=== PATIENT | male | born 1965 | race Caucasian/White ===

== ENCOUNTER → 2018-09-01 | Outpatient (CLI) | payer OTHER ==
--- NOTE | 2018-09-01 20:03 | CONS ---
CONSULTATION DATE OF SERVICE: 09/01/2018 53-year-old gentleman has been evaluated in the sleep center for possible obstructive sleep apnea hypopneas syndrome. HISTORY OF PRESENT ILLNESS/SLEEP WAKE EVALUATION: SLEEP SCHEDULE: Patient usual sleep schedule on weekdays from around 9 to 10 pm until 5:00 a.m. and on weekends from around 11:00 p.m. until 10:00 am. FALLING ASLEEP: She does have problem with falling asleep, although no TV in bedroom. DURING SLEEP: Usually sleeps on the back position with snoring and previously has been told by his mother that he has episodes of stopped breathing during the sleep. He wakes up from sleep sometimes 2 times with dry mouth and heartburn and 1 with nocturia. No history of hypnagogic hallucinations, sleep paralysis or cataplexy. DURING THE DAY/SLEEP WAKE EVALUATION: During the day, he may feel sleepy. [place] Sleepiness Scale increased to 10. PAST MEDICAL HISTORY: Positive for diabetes, hyperlipidemia, back problem, acid reflux. Hernia. PAST SURGICAL HISTORY: Appendectomy, tonsillectomy. MEDICATIONS: Neurontin, Flexeril, metformin, atorvastatin, aspirin, famotidine, meloxicam, NovoLog, glucosamine, fish oil, iron supplement. SOCIAL HISTORY: Positive for smoking many years ago. Quit 35 years ago. Alcohol consumption occasional. FAMILY HISTORY: Hypertension, snoring, headaches, cancer, acid reflux, diabetes. REVIEW OF SYSTEMS: Awakenings from sleep, some tiredness and sleepiness during the day. PHYSICAL EXAM: gentleman without distress, BP 149/85, HR 91, RR 18, height 5 feet 2 inches, weight 360.8, body mass index 65.8, temperature 98.2, oxygen saturation on room air 93%. Oropharynx: Extremely low position of soft palate. Wide neck, 18-1/2 inches in circumference. ABDOMEN: Obese. Neck Supple, no JVD. Thyroid is not palpable. LUNGS Clear to percussion and to auscultation. Good air exchange. No wheezing or rhonchi. HEART S1, S2 regular. No murmurs, gallops, or rubs. ABDOMEN Soft and nontender. Bowel sounds are present. No organomegaly appreciated. EXTREMITIES No clubbing or cyanosis. ECONOMIC DEVELOPMENT COORDINATOR Awake, alert, and oriented X3. Cranial nerves 2 to 7 intact. There is no fasciculation or atrophy. noted. No focal deficits observed. IMPRESSION: 1. Awakenings from sleep, low position of soft palate, sleepiness, wide neck, snoring, witnessed episodes of stopped breathing, obstructive sleep apnea-hypopnea syndrome. 2. Obesity, BMI 65.8. 3. Diabetes mellitus. 4. Hyperlipidemia. 5. Back problems. 6. Acid reflux. 7. Status post appendectomy. 8. Status post tonsillectomy. 9. Small abdominal hernia. PLAN: 1. Polysomnography for evaluation of patient's breathing during sleep. 2. CPAP/BiPAP titration if sleep study confirms obstructive sleep apnea-hypopnea syndrome. 3. Preferable position during sleep on the side. 4. No driving if patient feels any sleepiness. 5. I will see patient for follow up visit to explain results of testing and following plan. Thank you very much for referring this patient for consultation. Sincerely, Girish Vaughn MD, PhD, FAASM Diplomat of [employer] Substation Designer of [facility] [place] [facility] / HOLLYN: [id number] /
== END | disposition home or self-care (01) ==
LOC: SLEEP 15:15
PROVIDERS: ATTEND Internal Medicine
DX: G47.33 Obstructive sleep apnea (adult) (pediatric) (principal); M27.8 Other specified diseases of jaws; R35.1 Nocturia; R12 Heartburn; E66.9 Obesity, unspecified; E11.9 Type 2 diabetes mellitus without complications; E78.5 Hyperlipidemia, unspecified; K21.9 Gastro-esophageal reflux disease without esophagitis; K46.9 Unspecified abdominal hernia without obstruction or gangrene; M53.9 Dorsopathy, unspecified; Z79.84 Long term (current) use of oral hypoglycemic drugs; Z79.899 Other long term (current) drug therapy; Z68.44 Body mass index [BMI] 60.0-69.9, adult; Z90.89 Acquired absence of other organs; Z79.82 Long term (current) use of aspirin; Z79.4 Long term (current) use of insulin; Z87.891 Personal history of nicotine dependence; Z79.1 Long term (current) use of non-steroidal anti-inflammatories (NSAID)
CPT/HCPCS: 99211

== ENCOUNTER → 2019-01-04 | Outpatient (CLI) | payer OTHER ==
--- NOTE | 2019-01-04 19:01 | PN ---
PROGRESS NOTE DATE OF SERVICE: 01/04/2019 This patient is a 53-year-old gentleman who has been followed in Sleep Center for treatment of obstructive sleep apnea-hypopnea syndrome. Recently the patient had a polysomnogram and CPAP titration and I discussed results of his sleep studies with the patient in detail. Sleep study showed extremely severe sleep apnea with extremely severe oxygen desaturation. The patient started to use his machine, but he had some symptoms of upper respiratory infection and he was not able to use the machine for the whole time. I checked his CPAP unit. CPAP pressure is 16 cm of water. According to the machine, usage was 4/30 nights with average usage of 5.3 hours. Leak is 23 L/minute, which is borderline. Apnea-hypopnea index is only 1.2, which is absolutely perfect and normal. [place] Sleepiness Scale today is 2. MEDICATIONS: 1. Neurontin. 2. Flexeril. 3. Metformin. 4. Atorvastatin. 5. Famotidine. 6. Meloxicam. 7. NovoLog. 8. Glucosamine. 9. . PHYSICAL EXAMINATION: GENERAL: A pleasant patient in no distress. VITAL SIGNS: BP 158/88, HR 95, RR 19, weight 353.4, temperature 98.0. HEENT: PERRLA, EOMI. Evaluation of oropharynx showed tongue protrudes midline. Low position of soft palate. NECK: Supple. No JVD. Thyroid is not palpable. LUNGS: Clear to percussion and to auscultation. Good air exchange. No wheezing or rhonchi. HEART: S1, S2 regular. No murmurs, gallops or rubs. ABDOMEN: Obese. EXTREMITIES: No clubbing or cyanosis. LAND DEVELOPMENT PROJECT MANAGER: Awake, alert, and oriented X3. Cranial nerves 2 to 7 intact. There is no fasciculation or atrophy. noted. No focal deficits observed. IMPRESSION: 1. Extremely severe obstructive sleep apnea-hypopnea syndrome with extremely severe oxygen desaturation, under full control with CPAP at the pressure of 16 cm of water. Patient is benefitting from CPAP treatment. 2. Obesity with body mass index of 66.2. 3. Diabetes mellitus. 4. Hyperlipidemia. 5. Acid reflux. 6. Status post appendectomy. 7. Status post tonsillectomy. 8. History of small abdominal hernia. PLAN: 1. Patient will continue to use CPAP equipment every night for the whole night. 2. Losing weight. 3. Sleep hygiene with regular time in bed for at least 8 hours. 4. No driving if feeling any sleepiness. Thank you very much for allowing me to participate in the management of your patient. Sincerely, Girish Vuaghn MD, PhD, FAASM Diplomat of [employer] Dough Catcher of [facility] [place] [facility] / HOLLYN: [id number] /
== END | disposition home or self-care (01) ==
LOC: SLEEP 16:02
PROVIDERS: ATTEND Internal Medicine
DX: G47.33 Obstructive sleep apnea (adult) (pediatric) (principal); E66.9 Obesity, unspecified; E11.9 Type 2 diabetes mellitus without complications; E78.5 Hyperlipidemia, unspecified; K21.9 Gastro-esophageal reflux disease without esophagitis; Z68.44 Body mass index [BMI] 60.0-69.9, adult; Z90.89 Acquired absence of other organs; Z90.49 Acquired absence of other specified parts of digestive tract; Z87.19 Personal history of other diseases of the digestive system; Z99.89 Dependence on other enabling machines and devices; Z79.899 Other long term (current) drug therapy; Z79.1 Long term (current) use of non-steroidal anti-inflammatories (NSAID); Z79.4 Long term (current) use of insulin

== ENCOUNTER → 2019-12-19 | Outpatient (CLI) | payer OTHER ==
--- NOTE | 2019-12-20 10:35 | MR ---
EXAMINATION TYPE: MR lumbar spine wo con DATE OF EXAM: 12/19/2019 COMPARISON: Plain film from outside institution 12/11/2019, frontal view not submitted HISTORY: Low Back Pain TECHNIQUE: Multiplanar, multisequence images of the lumbar spine were acquired. L1-L2: Posterior broad-based disc bulge causes mild anterior mass effect on the thecal sac with mild central stenosis. No significant foraminal encroachment. Loss of disc height and signal compatible di sc desiccation and degenerative disc disease. L2-L3: Normal disc appearance without desiccation. No herniation, protrusion or disc bulging. No ca nal stenosis is present. Foramina are patent bilaterally. L3-L4: Normal disc appearance without desiccation. No herniation, protrusion or disc bulging. No ca nal stenosis is present. Foramina are patent bilaterally. L4-L5: Some facet arthropathy changes are present. Bilateral foraminal encroachment likely due to the listhesis. Eccentric disc bulge present towards the left extending posteriorly encroaching towards t he neural foramen, some slight local mass effect may be present. L5-S1: There is some facet arthropathy. No significant spinal stenosis, disc herniation or foraminal encroachment. Lumbar segments are intact. No paraspinal masses are identified. Conus medullaris has a normal appe arance. Spondylosis is present at L4, is noted bilaterally, there is an anterolisthesis grade 1 L4-5, low signal present along the disc space is noted at L4-5 centrally, possibly vacuum phenomenon, loss of disc height also present compatible with disc desiccation and degenerative disc disease, Schmorl' s node present at the superior endplate at L2, inferior endplates T11 and T12. Small hemangioma prese nt within the L2 vertebral body. IMPRESSION: Bilateral spondylolysis at L4, correlate with plain film prior to any intervention. Correlate for L4 radiculopathy. Degenerative disc disease as described. Facet arthropathy.
== END | disposition home or self-care (01) ==
LOC: RADMRIMAIN 14:14
PROVIDERS: ATTEND Physical Medicine & Rehabilitation
DX: M51.16 Intervertebral disc disorders with radiculopathy, lumbar region (principal); M43.06 Spondylolysis, lumbar region; M46.96 Unspecified inflammatory spondylopathy, lumbar region
CPT/HCPCS: 72148

== ENCOUNTER 2021-10-18 09:20 | Inpatient (IN) | payer OTHER ==
--- NOTE | 2021-10-18 10:41 | ED ---
General Adult HPI - General Chief complaint: Upper Respiratory Infection Stated complaint: Fever/Nausea Time Seen by Provider: 10/18/21 10:00 Source: patient, RN notes reviewed, old records reviewed Mode of arrival: ambulatory Limitations: no limitations - History of Present Illness Initial comments: This is a 56-year-old male who has a past medical history significant for diabetes and hypertension. Patient states she has not been vaccinated for COVI D. Patient states she's had a three-day history of loss of taste and smell. Patient states she's had a cough and some mild shortness of breath. Patient denies any nausea vomiting. Patient states she does have some chest pain but it secondary to his coughing. Patient denies knowing these had any fever chills. Patient denies any abdominal pain. Patient denies any diarrhea. Patient denies any swelling to his legs or calf tenderness. - Related Data Home Medications Medication Instructions Recorded Confirmed Aspirin EC [Ecotrin Low Dose] 81 mg PO DAILY 10/18/21 10/18/21 Atorvastatin Calcium [Lipitor] 20 mg PO HS 10/18/21 10/18/21 Citalopram Hydrobromide [CeleXA] 20 mg PO DAILY 10/18/21 10/18/21 Cyclobenzaprine [Flexeril] 10 mg PO TID 10/18/21 10/18/21 Exenatide Microspheres [Bydureon 2 mg SQ TU 10/18/21 10/18/21 Bcise Auto-Injector] Famotidine [Pepcid] 20 mg PO BID 10/18/21 10/18/21 Ferrous Sulfate [Feosol] 325 mg PO BID 10/18/21 10/18/21 Gabapentin [Neurontin] 300 mg PO TID 10/18/21 10/18/21 Insulin Glargine,Hum.rec.anlog 68 units SQ HS 10/18/21 10/18/21 [Brian Solostligia] Magnesium 250 mg PO DAILY 10/18/21 10/18/21 Meloxicam [Mobic] 7.5 mg PO BID 10/18/21 10/18/21 Metoprolol Succinate (ER) [Toprol 50 mg PO DAILY 10/18/21 10/18/21 Xl] [place]-3 Fatty Acids/Fish Oil [Fish 1 cap PO TID 10/18/21 10/18/21 Oil 1,000 mg Softgel] lisinopriL [Zestril] 5 mg PO DAILY 10/18/21 10/18/21 Allergies Allergy/AdvReac Type Severity Reaction Status Date / Time No Known Allergies Allergy Verified 10/18/21 13:14 Review of Systems ROS Statement: Those systems with pertinent positive or pertinent negative responses have been documented in the HPI. ROS Other: All systems not noted in ROS Statement are negative. Past Medical History Past Medical History: No Reported History History of Any Multi-Drug Resistant Organisms: None Reported Past Surgical History: No Surgical Hx Reported Past Psychological History: No Psychological Hx Reported Smoking Status: Never smoker Past Alcohol Use History: None Reported Past Drug Use History: None Reported General Exam - General Exam Comments Initial Comments: GENERAL: Patient is well-developed and well-nourished. Patient is nontoxic and well- hydrated and is in mild distress. ENT: Neck is soft and supple. No significant lymphadenopathy is noted. Oropharynx is clear. Moist mucous membranes. Neck has full range of motion without eliciting any pain. EYES: The sclera were anicteric and conjunctiva were pink and moist. Extraocular movements were intact and pupils were equal round and reactive to light. Eyelids were unremarkable. PULMONARY: Unlabored respirations. Good breath sounds bilaterally. No audible rales rhonchi or wheezing was noted. CARDIOVASCULAR: There is a regular rate and rhythm without any murmurs gallops or rubs. ABDOMEN: Soft and nontender with normal bowel sounds. Patient is morbidly obese. SKIN: Skin is clear with no lesions or rashes and otherwise unremarkable. NEUROLOGIC: Patient is alert and oriented x3. Cranial nerves II through XII are grossly intact. Motor and sensory are also intact. Normal speech, volume and content. Symmetrical smile. MUSCULOSKELETAL: Normal extremities with adequate strength and full range of motion. No lower extremity swelling or edema. No calf tenderness. LYMPHATICS: No significant lymphadenopathy is noted PSYCHIATRIC: Normal psychiatric evaluation. Limitations: no limitations Course Vital Signs 10/18/21 10/18/21 10:00 10:30 Temperature 99.3 F Pulse Rate 100 92 Respiratory 24 20 Rate Blood Pressure 124/87 O2 Sat by Pulse 85 L 94 L Oximetry Medical Decision Making - Medical Decision Making EKG shows sinus rhythm with occasional PVC at 97 bpm MS interval 146 114 QT Interval 360 QTC Is 467. EKG shows no ST segment elevation or depression Chest x-ray shows pneumonia particularly in the left base. CAT scan again shows pneumonia no PE. I spoke with Dr. Richey he agreed to admit the patient admitted the patient wrote admitting orders. - Lab Data Result diagrams: 10/18/21 10:58 10/18/21 10:58 Lab Results 10/18/21 10/18/21 10/18/21 Range/Units 10:58 10:58 10:58 WBC 5.8 (3.8-10.6) k/uL RBC 5.27 (4.30-5.90) m/uL Hgb 14.4 (13.0-17.5) gm/dL Hct 44.1 (39.0-53.0) % MCV 83.6 (80.0-100.0) fL MCH 27.2 (25.0-35.0) pg MCHC 32.6 (31.0-37.0) g/dL RDW 14.3 (11.5-15.5) % Plt Count 219 (150-450) k/uL MPV 8.2 Neutrophils % 73 % Lymphocytes % 13 % Monocytes % 12 % Eosinophils % 0 % Basophils % 1 % Neutrophils # 4.2 (1.3-7.7) k/uL Lymphocytes # 0.7 L (1.0-4.8) k/uL Monocytes # 0.7 (0-1.0) k/uL Eosinophils # 0.0 (0-0.7) k/uL Basophils # 0.1 (0-0.2) k/uL Sodium 135 L (137-145) mmol/L Potassium 5.1 (3.5-5.1) mmol/L Chloride 100 (98-107) mmol/L Carbon Dioxide 25 (22-30) mmol/L Anion Gap 10 mmol/L BUN 22 H (9-20) mg/dL Creatinine 0.89 (0.66-1.25) mg/dL Est GFR (CKD-EPI)AfAm >90 (>60 ml/min/1.73 sqM) Est GFR (CKD-EPI)NonAf >90 (>60 ml/min/1.73 sqM) Glucose 229 H (74-99) mg/dL Calcium 8.4 (8.4-10.2) mg/dL Magnesium 1.5 L (1.6-2.3) mg/dL Total Bilirubin 0.8 (0.2-1.3) mg/dL AST 38 (17-59) U/L ALT 35 (4-49) U/L Alkaline Phosphatase 85 (38-126) U/L Troponin I (0.000-0.034) ng/mL Total Protein 6.6 (6.3-8.2) g/dL Albumin 3.4 L (3.5-5.0) g/dL Coronavirus (PCR) Detected A (Not Detectd) 10/18/21 Range/Units 10:58 WBC (3.8-10.6) k/uL RBC (4.30-5.90) m/uL Hgb (13.0-17.5) gm/dL Hct (39.0-53.0) % MCV (80.0-100.0) fL MCH (25.0-35.0) pg MCHC (31.0-37.0) g/dL RDW (11.5-15.5) % Plt Count (150-450) k/uL MPV Neutrophils % % Lymphocytes % % Monocytes % % Eosinophils % % Basophils % % Neutrophils # (1.3-7.7) k/uL Lymphocytes # (1.0-4.8) k/uL Monocytes # (0-1.0) k/uL Eosinophils # (0-0.7) k/uL Basophils # (0-0.2) k/uL Sodium (137-145) mmol/L Potassium (3.5-5.1) mmol/L Chloride (98-107) mmol/L Carbon Dioxide (22-30) mmol/L Anion Gap mmol/L BUN (9-20) mg/dL Creatinine (0.66-1.25) mg/dL Est GFR (CKD-EPI)AfAm (>60 ml/min/1.73 sqM) Est GFR (CKD-EPI)NonAf (>60 ml/min/1.73 sqM) Glucose (74-99) mg/dL Calcium (8.4-10.2) mg/dL Magnesium (1.6-2.3) mg/dL Total Bilirubin (0.2-1.3) mg/dL AST (17-59) U/L ALT (4-49) U/L Alkaline Phosphatase (38-126) U/L Troponin I <0.012 (0.000-0.034) ng/mL Total Protein (6.3-8.2) g/dL Albumin (3.5-5.0) g/dL Coronavirus (PCR) (Not Detectd) Disposition Clinical Impression: Pneumonia due to COVID-19 virus, Hypoxia Disposition: ADMITTED IP TO THIS HOSP Referrals: Tien Cottrell MD [Primary Care Provider] - 1-2 days Time of Disposition: 14:08
[2021-10-18 11:07] LABS: Basophils # (A) 0.1 k/uL (0-0.2); Basophils % (A) 1 %; Eosinophils % (A) 0 %; HCT 44.1 % (39.0-53.0); HGB 14.4 gm/dL (13.0-17.5); Lymphocytes # (A) 0.7 k/uL (1.0-4.8); Lymphocytes % (A) 13 %; MCH 27.2 pg (25.0-35.0); MCHC 32.6 g/dL (31.0-37.0); MCV 83.6 fL (80.0-100.0); Mean Platelet Volume 8.2; Monocytes # (A) 0.7 k/uL (0-1.0); Monocytes % (A) 12 %; Neutrophils # (A) 4.2 k/uL (1.3-7.7); Neutrophils % (A) 73 %; Platelet Count 219 k/uL (150-450); RBC 5.27 m/uL (4.30-5.90); RDW 14.3 % (11.5-15.5); WBC 5.8 k/uL (3.8-10.6)
--- NOTE | 2021-10-18 11:17 | XR ---
EXAMINATION TYPE: XR chest 1V portable DATE OF EXAM: 10/18/2021 COMPARISON: none HISTORY: SOB TECHNIQUE: Single frontal view of the chest is obtained. FINDINGS: There is no focal air space opacity, pleural effusion, or pneumothorax seen. The cardiac silhouette size is within normal limits. The osseous structures are intact. IMPRESSION: No acute process.
[2021-10-18 11:29] LABS: ALT 35 U/L (4-49); AST 38 U/L (17-59); African American GFR (CKD) >90 (>60 ml/min/1.73 sqM); Albumin 3.4 g/dL (3.5-5.0); Alkaline Phosphatase 85 U/L (38-126); Anion Gap 10 mmol/L; Blood Urea Nitrogen 22 mg/dL (9-20); Calcium 8.4 mg/dL (8.4-10.2); Carbon Dioxide 25 mmol/L (22-30); Chloride 100 mmol/L (98-107); Glucose 229 mg/dL (74-99); Magnesium 1.5 mg/dL (1.6-2.3); Non-African American GFR(CKD) >90 (>60 ml/min/1.73 sqM); Potassium 5.1 mmol/L (3.5-5.1); Sodium 135 mmol/L (137-145); Total Bilirubin 0.8 mg/dL (0.2-1.3); Total Protein 6.6 g/dL (6.3-8.2)
[2021-10-18] MEDS ORDERED: MAGNESIUM SULFATE-D5W PMX 1 GM in DEXTROSE/WATER 1 100ML.BAG IVPB ONE (11:56)
[2021-10-18] MEDS ORDERED: DEXAMETHASONE SOD PHOSPHATE 10 MG/ML 1 ML VIAL IVP STA (11:58)
--- NOTE | 2021-10-18 13:42 | CT ---
EXAMINATION TYPE: CT chest angio for PE DATE OF EXAM: 10/18/2021 COMPARISON: None HISTORY: SOB, cough CT DLP: 912.4 mGycm CONTRAST: CT chest with contrast and 3D reconstruction with MIP imaging is performed with IV Contrast, patient injected with 100 mL of Isovue 370. Contrast-enhanced CT of the chest was performed through the course of the pulmonary arteries with shalom g and mediastinal window settings submitted. 3D reconstruction with MIP imaging was also performed. PULMONARY ARTERIES: The pulmonary arteries and their major tributaries are patent. I do not see ray dence for sizable filling defect to suggest pulmonary embolic process. LUNGS: Scattered groundglass infiltrates throughout both lung noble. No evidence for atelectasis. No pulmonary nodule or mass is detected. No pleural effusion. MEDIASTINUM: Thoracic aorta is of normal caliber,however, evaluation is limited given timing of the contrast bolus. If there is concern for thoracic aortic pathology consider END. Correlate clinicall y . The heart is not enlarged. No evidence for mediastinal mass. No mediastinal lymph nodes greater than 1cm. HILAR STRUCTURES: No evidence for mass. No hilar lymph nodes greater than 1 cm. UPPER ABDOMEN: No significant abnormality is seen. IMPRESSION: 1. No evidence for Pulmonary embolism at this time. 2. Covid 19 pneumonia
[2021-10-18] MEDS ORDERED: SODIUM CHLORIDE 0.9% 1,000 ML IV ONE (14:08)
[2021-10-18] MEDS ORDERED: ONDANSETRON 4 MG/2 ML VIAL IVP STA (14:57)
--- NOTE | 2021-10-18 16:58 | P.HPIM ---
History of Present Illness Patient is a pleasant 56-year-old obese male came in with complaints of loss of taste and smell sensations and started short of breath and patient is presently in 2 days of oxygen. Patient is found to have Covid [address] of the chest which did not show any pulmonary embolism but did show findings consistent with Covid 19 patient was already started on October patient is on systemic steroids. Patient has uncontrolled elevated blood sugars which are expected to go up because of Decadron he was started on. Patient was also having some chest discomfort. REVIEW OF SYSTEMS: CONSTITUTIONAL: No fever, no malaise, no fatigue. HEENT: No recent visual problems or hearing problems. Denied any sore throat. CARDIOVASCULAR: No, orthopnea, PND, no palpitations, no syncope. PULMONARY: no hemoptysis. GASTROINTESTINAL: No diarrhea, no nausea, no vomiting, no abdominal pain. NEUROLOGICAL: No headaches, no weakness, no numbness. HEMATOLOGICAL: Denies any bleeding or petechiae. GENITOURINARY: Denies any burning micturition, frequency, or urgency. MUSCULOSKELETAL/RHEUMATOLOGICAL: Denies any joint pain, swelling, or any muscle pain. ENDOCRINE: Denies any polyuria or polydipsia. The rest of the 14-point review of systems is negative. PHYSICAL EXAMINATION: GENERAL: The patient is alert and oriented x3, not in any acute distress. obese HEENT: Pupils are round and equally reacting to light. EOMI. No scleral icterus. No conjunctival pallor. Normocephalic, atraumatic. No pharyngeal erythema. No th yromegaly. CARDIOVASCULAR: S1 and S2 present. No murmurs, rubs, or gallops. PULMONARY: Chest is clear to auscultation, no wheezing or crackles. ABDOMEN: Soft, nontender, nondistended, normoactive bowel sounds. No palpable organomegaly. MUSCULOSKELETAL: No joint swelling or deformity. EXTREMITIES: No cyanosis, clubbing, or pedal edema. NEUROLOGICAL: Gross neurological examination did not reveal any focal deficits. SKIN: No rashes. Assessment and plan -Covid 19 pneumonia and acute hypoxia secondary to Covid 19 pneumonia patient will be continued on October, systemic steroids, cold vitamins will obtain d-dimer patient was started on Lovenox -To placement as uncontrolled elevated blood sugars patient is expected to have highly elevated blood sugars because of Decadron will continue with the long- acting insulin and steroids scale -Gastroesophageal reflux disease -Hyperlipidemia -Morbid obesity DVT prophylaxis: Lovenox Past Medical History Past Medical History: No Reported History History of Any Multi-Drug Resistant Organisms: None Reported Past Surgical History: No Surgical Hx Reported Past Psychological History: No Psychological Hx Reported Smoking Status: Never smoker Past Alcohol Use History: None Reported Past Drug Use History: None Reported Medications and Allergies Home Medications Medication Instructions Recorded Confirmed Type Aspirin EC [Ecotrin Low Dose] 81 mg PO DAILY 10/18/21 10/18/21 History Atorvastatin Calcium [Lipitor] 20 mg PO HS 10/18/21 10/18/21 History Citalopram Hydrobromide [CeleXA] 20 mg PO DAILY 10/18/21 10/18/21 History Cyclobenzaprine [Flexeril] 10 mg PO TID 10/18/21 10/18/21 History Exenatide Microspheres [Bydureon 2 mg SQ TU 10/18/21 10/18/21 History Bcise Auto-Injector] Famotidine [Pepcid] 20 mg PO BID 10/18/21 10/18/21 History Ferrous Sulfate [Feosol] 325 mg PO BID 10/18/21 10/18/21 History Gabapentin [Neurontin] 300 mg PO TID 10/18/21 10/18/21 History Insulin Glargine,Hum.rec.anlog 68 units SQ HS 10/18/21 10/18/21 History [[place] Solostar] Magnesium 250 mg PO DAILY 10/18/21 10/18/21 History Meloxicam [Mobic] 7.5 mg PO BID 10/18/21 10/18/21 History Metoprolol Succinate (ER) [Toprol 50 mg PO DAILY 10/18/21 10/18/21 History Xl] [place]-3 Fatty Acids/Fish Oil [Fish 1 cap PO TID 10/18/21 10/18/21 History Oil 1,000 mg Softgel] lisinopriL [Zestril] 5 mg PO DAILY 10/18/21 10/18/21 History Allergies Allergy/AdvReac Type Severity Reaction Status Date / Time No Known Allergies Allergy Verified 10/18/21 13:14 Physical Exam Vitals: Vital Signs Temp Pulse Resp BP Pulse Ox 10/18/21 15:58 89 18 94 L 10/18/21 10:30 92 20 94 L 10/18/21 10:00 99.3 F 100 24 124/87 85 L Intake and Output 10/18/21 10/18/21 10/18/21 06:59 14:59 22:59 Other: Weight 149.685 kg Results CBC & Chem 7: 10/18/21 10:58 10/18/21 10:58 Labs: Abnormal Lab Results - Last 24 Hours (Table) 10/18/21 10/18/21 10/18/21 Range/Units 10:58 10:58 10:58 Lymphocytes # 0.7 L (1.0-4.8) k/uL Sodium 135 L (137-145) mmol/L BUN 22 H (9-20) mg/dL Glucose 229 H (74-99) mg/dL Magnesium 1.5 L (1.6-2.3) mg/dL Albumin 3.4 L (3.5-5.0) g/dL Coronavirus (PCR) Detected A (Not Detectd)
[2021-10-18] MEDS ORDERED: REMDESIVIR 200 MG in SODIUM CHLORIDE 0.9% 250 ML IVPB ONE (17:00)
--- NOTE | 2021-10-18 17:06 | P.CNPUL ---
History of Present Illness Consult date: 10/18/21 Reason for consult: dyspnea, hypoxemia, pneumonia History of present illness: 55-year-old male patient, morbidly obese with known history of severe obstructive sleep apnea, AHI of 90 and he carries a BMI of 60.4 in addition to history of diabetes mellitus and hyperlipidemia and acid reflux, whereas been not vaccinated for COVID 19. The patient is coming in with worsening shortness of breath, loss and taste and smell 3 days duration in addition to cough and shortness of breath. No nausea. No vomiting no GI symptoms. He has been having no chills. No fever. He came into the emergency department for the above-mentioned reason. Temperature was 99.3, pulse ox 95% on room air oxygen. His second was at 5.8 with hemoglobin of 14.4, sodium was at 135, mucosa was at 229. His liver function tests were essentially within normal limits, the patient had a negative troponin. If the patient is currently on 2 L of oxygen by nasal cannula. CT angiogram showed some limited bilateral patchy areas of groundglass pulmonary infiltrates and there was no evidence of any pulmonary embolism. In terms of his inflammatory markers, the patient is still awaiting on inflammatory markers. We'll check d-dimer in addition to Procardia toning, LVH and CRP. The patient was started on Decadron. The patient was started on 2 L of oxygen by nasal cannula. Review of Systems Constitutional: Reports daytime sleepiness, Reports fatigue, Reports fever, Reports lethargy, Reports weight gain Eyes: denies as per HPI, denies blurred vision, denies bulging eye, denies decreased vision, denies diplopia, denies discharge, denies dry eye, denies irritation, denies itching, denies pain, denies photophobia, denies loss of peripheral vision, denies loss of vision, denies tunnel vision/blind spots Ears: deny: decreased hearing, ear discharge, earache, tinnitus Ears, nose, mouth and throat: Reports as per HPI Breasts: absent: as per HPI, gynecomastia Cardiovascular: Reports decreased exercise tolerance, Reports dyspnea on exertion Respiratory: Reports cough, Reports dyspnea Gastrointestinal: Reports as per HPI Genitourinary: Reports as per HPI Musculoskeletal: Reports as per HPI Musculoskeletal: absent: ankle pain, ankle stiffness, ankle swelling, as per HPI, elbow pain, elbow stiffness, elbow swelling, foot pain, foot stiffness, foot swelling, hand pain, hand stiffness, hand swelling, hip pain, hip stiffness, hip swelling, knee pain, knee stiffness, knee swelling, shoulder pain, shoulder stiffness, shoulder swelling, wrist pain, wrist stiffness, wrist swelling Integumentary: Reports as per HPI Neurological: Reports as per HPI, Reports weakness Psychiatric: Reports as per HPI Endocrine: Reports as per HPI, Reports fatigue Hematologic/Lymphatic: Reports as per HPI Allergic/Immunologic: Reports as per HPI Past Medical History Past Medical History: No Reported History History of Any Multi-Drug Resistant Organisms: None Reported Past Surgical History: No Surgical Hx Reported Past Psychological History: No Psychological Hx Reported Smoking Status: Never smoker Past Alcohol Use History: None Reported Past Drug Use History: None Reported Medications and Allergies Home Medications Medication Instructions Recorded Confirmed Type Aspirin EC [Ecotrin Low Dose] 81 mg PO DAILY 10/18/21 10/18/21 History Atorvastatin Calcium [Lipitor] 20 mg PO HS 10/18/21 10/18/21 History Citalopram Hydrobromide [CeleXA] 20 mg PO DAILY 10/18/21 10/18/21 History Cyclobenzaprine [Flexeril] 10 mg PO TID 10/18/21 10/18/21 History Exenatide Microspheres [Bydureon 2 mg SQ TU 10/18/21 10/18/21 History Bcise Auto-Injector] Famotidine [Pepcid] 20 mg PO BID 10/18/21 10/18/21 History Ferrous Sulfate [Feosol] 325 mg PO BID 10/18/21 10/18/21 History Gabapentin [Neurontin] 300 mg PO TID 10/18/21 10/18/21 History Insulin Glargine,Hum.rec.anlog 68 units SQ HS 10/18/21 10/18/21 History [Toujeo Solostar] Magnesium 250 mg PO DAILY 10/18/21 10/18/21 History Meloxicam [Mobic] 7.5 mg PO BID 10/18/21 10/18/21 History Metoprolol Succinate (ER) [Toprol 50 mg PO DAILY 10/18/21 10/18/21 History Xl] Monroe-3 Fatty Acids/Fish Oil [Fish 1 cap PO TID 10/18/21 10/18/21 History Oil 1,000 mg Softgel] lisinopriL [Zestril] 5 mg PO DAILY 10/18/21 10/18/21 History Allergies Allergy/AdvReac Type Severity Reaction Status Date / Time No Known Allergies Allergy Verified 10/18/21 13:14 Physical Exam Vitals: Vital Signs Temp Pulse Resp BP Pulse Ox 10/18/21 10:30 92 20 94 L 10/18/21 10:00 99.3 F 100 24 124/87 85 L Intake and Output 10/18/21 10/18/21 10/18/21 06:59 14:59 22:59 Other: Weight 149.685 kg GENERAL: Patient is well-developed and well-nourished. Patient is nontoxic and well- hydrated and is in mild distress. The patient's breathing is nonlabored and the patient is currently on 2 L of oxygen by nasal cannula. His morbid obesity BMI of 60.4. The patient is not using excessive muscle breathing. ENT: Neck is soft and supple. No significant lymphadenopathy is noted. Oropharynx is clear. Moist mucous membranes. Neck has full range of motion without eliciting any pain. EYES: The sclera were anicteric and conjunctiva were pink and moist. Extraocular movements were intact and pupils were equal round and reactive to light. Eyelids were unremarkable. PULMONARY: Unlabored respirations. Good breath sounds bilaterally. No audible rales rhonchi or wheezing was noted. CARDIOVASCULAR: There is a regular rate and rhythm without any murmurs gallops or rubs. ABDOMEN: Soft and nontender with normal bowel sounds. Patient is morbidly obese. SKIN: Skin is clear with no lesions or rashes and otherwise unremarkable. NEUROLOGIC: Patient is alert and oriented x3. Cranial nerves II through XII are grossly intact. Motor and sensory are also intact. Normal speech, volume and content. Symmetrical smile. MUSCULOSKELETAL: Normal extremities with adequate strength and full range of motion. No lower extremity swelling or edema. No calf tenderness. LYMPHATICS: No significant lymphadenopathy is noted PSYCHIATRIC: Normal psychiatric evaluation. Results - Laboratory Findings CBC and BMP: 10/18/21 10:58 10/18/21 10:58 Abnormal lab findings: Abnormal Labs 10/18/21 10/18/21 10/18/21 10:58 10:58 10:58 Lymphocytes # 0.7 L Sodium 135 L BUN 22 H Glucose 229 H Magnesium 1.5 L Albumin 3.4 L Coronavirus (PCR) Detected A - Diagnostic Findings Chest x-ray: image reviewed CT scan - chest: image reviewed Assessment and Plan Plan: 1 acute COVID 19 related pneumonia. The patient presented with few days' history of cough and dyspnea addition to loss and taste and smell and the patient was found to be hypoxemic and a CT angiogram showed patchy bilateral groundglass pulmonary infiltrates consistent with COVID 19 related pneumonia. According to the patient was hospitalized 2 acute hypoxic respiratory failure secondary to above currently on 2 L of oxygen by nasal cannula 3 loss and taste and smell secondary to above 4 morbid obesity with BMI of 60.4 5 severe central sleep apnea with an AHI of 90, at a pressure of 16 cm of water of CPAP. 6 diabetes mellitus 7 hypertension 8 hyperlipidemia 9 chronic anxiety/depression Plan Supplement the patient on oxygen 2 L per minute nasal cannula IV fluid hydration with normal saline rate of 75 mL's an hour Check inflammatory markers including of the CRP d-dimer and pro-calcitonin Put the patient on Decadron 6 mg IV every 24 hours. Put the patient on Remdesivir per protocol Put the patient articulation with Lovenox 40 Subcu every 24 hours Multivitamins hours COVID 19 infections including vitamin C and vitamin D and zinc Reconsult home medication Put the patient on glargine insulin 68 units at bedtime in addition to a sliding scale coverage. Anticipate some rise in the blood sugars due to steroids The patient utilizes CPAP machine from home. In fact the patient is on CPAP at a pressure of 16 cm of water.
[2021-10-18] MEDS: ASCORBIC ACID 500 MG TAB PO SCH (17:26)
[2021-10-18] MEDS: CHOLECALCIFEROL 25 MCG (1000 IU) TABLET PO SCH (17:26)
[2021-10-18] MEDS: ZINC SULFATE 220 MG CAP PO SCH (17:27)
[2021-10-18 17:54] LABS: C Reactive Protein 4.9 mg/dL (<1.0)
[2021-10-18] MEDS: FAMOTIDINE 20 MG TAB PO SCH (21:08)
[2021-10-18] MEDS: MELOXICAM 7.5 MG TAB PO SCH (21:08)
[2021-10-18] MEDS: CYCLOBENZAPRINE 10 MG TAB PO SCH (21:09)
[2021-10-18] MEDS: FERROUS SULFATE 325 MG TAB PO SCH (21:09)
[2021-10-18] MEDS: MAGNESIUM SULFATE-D5W PMX 1 GM in DEXTROSE/WATER 1 100ML.BAG IVPB SCH ×2 (21:09→22:52)
[2021-10-18] MEDS: ATORVASTATIN 20 MG TAB PO SCH (21:09)
[2021-10-18] MEDS: GABAPENTIN 300 MG CAP PO SCH (21:09)
[2021-10-18 21:50] LABS: Glucose,Whole Blood 280 mg/dL (75-99)
[2021-10-18] MEDS: INSULIN DETEMIR (LEVEMIR) 100 UNIT/ML SYR SQ SCH (22:52)
[2021-10-19 07:48] LABS: Glucose,Whole Blood 225 mg/dL (75-99)
[2021-10-19] MEDS: MELOXICAM 7.5 MG TAB PO SCH ×2 (08:23→22:00)
[2021-10-19] MEDS: CHOLECALCIFEROL 25 MCG (1000 IU) TABLET PO SCH (08:24)
[2021-10-19] MEDS: FERROUS SULFATE 325 MG TAB PO SCH ×2 (08:24→21:57)
[2021-10-19] MEDS: lisinopriL 5 MG TAB PO SCH (08:24)
[2021-10-19] MEDS: ASCORBIC ACID 500 MG TAB PO SCH (08:24)
[2021-10-19] MEDS: dexAMETHasone 2 MG TAB PO SCH (08:24)
[2021-10-19] MEDS: FAMOTIDINE 20 MG TAB PO SCH ×2 (08:24→21:57)
[2021-10-19] MEDS: CYCLOBENZAPRINE 10 MG TAB PO SCH ×3 (08:24→21:57)
[2021-10-19] MEDS: ZINC SULFATE 220 MG CAP PO SCH (08:24)
[2021-10-19] MEDS: METOPROLOL SUCCINATE (ER) 50 MG TAB.ER.24H PO SCH (08:25)
[2021-10-19] MEDS: GABAPENTIN 300 MG CAP PO SCH ×3 (08:25→21:57)
[2021-10-19] MEDS: CITALOPRAM HYDROBROMIDE 20 MG TAB PO SCH (08:25)
[2021-10-19] MEDS ORDERED: ENOXAPARIN 40 MG/0.4 ML SYRINGE SQ SCH (09:00)
[2021-10-19] MEDS: ENOXAPARIN 60 MG/0.6 ML SYRINGE SQ SCH (10:04)
[2021-10-19 11:19] LABS: Glucose,Whole Blood 197 mg/dL (75-99)
--- NOTE | 2021-10-19 16:17 | P.PN ---
Subjective Progress Note Date: 10/19/21 10/19/2021, I'm seeing the patient for a follow-up. Is a 56-year-old male patient morbidly obese with severe obstructive sleep apnea. The patient currently is being treated in the hospital for COVID 19 related pneumonia. The patient is currently on 2 L about 2 by nasal cannula. Feeling well. No signi ficant worsening shortness of breath. He was seen in consultation yesterday and the patient was started on Decadron 6 mg by mouth daily and is also started on Lovenox for DVT prophylaxis. He was also started on a nitroglycerin drip per protocol as the patient was felt to be falling within the window of this treatment. His pro-calcitonin level is at 0.15. D-dimer is at 0.18. His LDH level is 610. No other significant complaints for now. No nausea. No vomiting. No diarrhea. No abdominal pain. Objective - Vital Signs Vital signs: Vital Signs Temp 98.0 F 10/19/21 13:49 Pulse 82 10/19/21 13:49 Resp 19 10/19/21 13:49 BP 111/61 10/19/21 13:49 Pulse Ox 94 L 10/19/21 13:49 Intake & Output 10/18/21 10/19/21 10/19/21 18:59 06:59 18:59 Intake Total 450 800 Balance 450 800 Weight 149.685 kg 149.685 kg Intake: Intake, IV Titration 250 200 Amount Magnesium Sulfate-D5w Pmx 100 1 gm In Dextrose/Water 1 100ml.bag @ 100 mls/hr IVPB ONCE ONE Rx#: [id number] Magnesium Sulfate-D5w Pmx 100 1 gm In Dextrose/Water 1 100ml.bag @ 100 mls/hr IVPB Q1H [facility] Rx#: [id number] Remdesivir 200 mg In 250 Sodium Chloride 0.9% 250 ml @ 250 mls/hr IVPB ONCE ONE Rx#:[id number] Oral 200 600 Other: Voiding Method Toilet # Voids 3 - Exam GENERAL: Patient is well-developed and well-nourished. Patient is nontoxic and well-hy drated and is in mild distress. The patient's breathing is nonlabored and the patient is currently on 2 L of oxygen by nasal cannula. His morbid obesity BMI of 60.4. The patient is not using excessive muscle breathing. ENT: Neck is soft and supple. No significant lymphadenopathy is noted. Oropharynx is clear. Moist mucous membranes. Neck has full range of motion without eliciting any pain. EYES: The sclera were anicteric and conjunctiva were pink and moist. Extraocular movements were intact and pupils were equal round and reactive to light. Eyelids were unremarkable. PULMONARY: Unlabored respirations. Good breath sounds bilaterally. No audible rales rhonchi or wheezing was noted. CARDIOVASCULAR: There is a regular rate and rhythm without any murmurs gallops or rubs. ABDOMEN: Soft and nontender with normal bowel sounds. Patient is morbidly obese. SKIN: Skin is clear with no lesions or rashes and otherwise unremarkable. NEUROLOGIC: Patient is alert and oriented x3. Cranial nerves II through XII are grossly intact. Motor and sensory are also intact. Normal speech, volume and content. Symmetrical smile. MUSCULOSKELETAL: Normal extremities with adequate strength and full range of motion. No lower extremity swelling or edema. No calf tenderness. LYMPHATICS: No significant lymphadenopathy is noted PSYCHIATRIC: Normal psychiatric evaluation. - Labs CBC & Chem 7: 10/18/21 10:58 10/18/21 10:58 Labs: Abnormal Lab Results - Last 24 Hours (Table) 10/18/21 10/18/21 10/18/21 Range/Units 17:24 17:24 21:48 POC Glucose (mg/dL) 280 H (75-99) mg/dL C-Reactive Protein 4.9 H (<1.0) mg/dL Procalcitonin 0.15 H (0.02-0.09) ng/mL 10/19/21 10/19/21 Range/Units 07:47 11:18 POC Glucose (mg/dL) 225 H 197 H (75-99) mg/dL C-Reactive Protein (<1.0) mg/dL Procalcitonin (0.02-0.09) ng/mL Assessment and Plan Plan: 1 acute COVID 19 related pneumonia. The patient presented with few days' hist ory of cough and dyspnea addition to loss and taste and smell and the patient was found to be hypoxemic and a CT angiogram showed patchy bilateral groundglass pulmonary infiltrates consistent with COVID 19 related pneumonia. According to the patient was hospitalized. The patient's condition is stable. Currently the patient is being treated with a combination of Decadron and Remdesivir protocol. D-dimer is low. Affirmative markers are essentially low at this point in time. Oxygen requirements are only 2 L per minute nasal cannula. 2 acute hypoxic respiratory failure secondary to above currently on 2 L of oxygen by nasal cannula 3 loss and taste and smell secondary to above 4 morbid obesity with BMI of 60.4 5 severe central sleep apnea with an AHI of 90, at a pressure of 16 cm of water of CPAP. 6 diabetes mellitus 7 hypertension 8 hyperlipidemia 9 chronic anxiety/depression Plan Supplement the patient on oxygen 2 L per minute nasal cannula IV fluid hydration with normal saline rate of 75 mL's an hour Check inflammatory markers including of the CRP d-dimer and pro-calcitonin levels were checked. Put the patient on Decadron 6 mg IV every 24 hours. Put the patient on Remdesivir per protocol, day #2 for today. Put the patient articulation with Lovenox 50 Subcu every 24 hours Multivitamins for COVID 19 infections including vitamin C and vitamin D and zinc Put the patient on glargine insulin 68 units at bedtime in addition to a sliding scale coverage. Anticipate some rise in the blood sugars due to steroids The patient utilizes CPAP machine from home. In fact the patient is on CPAP at a pressure of 16 cm of water. We'll continue to follow.
--- NOTE | 2021-10-19 16:29 | P.PN ---
Subjective Patient is a pleasant 56-year-old obese male came in with complaints of loss of taste and smell sensations and started short of breath and patient is presently in 2 days of oxygen. Patient is found to have Covid [address] of the chest which did not show any pulmonary embolism but did show findings consistent with Covid 19 patient was already started on October patient is on systemic steroids. Patient has uncontrolled elevated blood sugars which are expected to go up because of Decadron he was started on. Patient was also having some chest discomfort. 10/19/2021 Patient's oxygen requirements went up patient will be continued on Decadron, Remdesivir will be monitored. Constitutional: Denied any fatigue denied any fever. Cardio vascular: denied any chest pain, palpitations Gastrointestinal denied any nausea vomiting Pulmonary: Still short of breath cough Neurologic denied any new focal deficits All inpatient medications were reviewed and appropriate changes in these medications as dictated in the interval history and assessment and plan. PHYSICAL EXAMINATION: GENERAL: The patient is alert and oriented x3, not in any acute distress. obese HEENT: Pupils are round and equally reacting to light. EOMI. No scleral icterus. No conjunctival pallor. Normocephalic, atraumatic. No pharyngeal erythema. No thyromegaly. CARDIOVASCULAR: S1 and S2 present. No murmurs, rubs, or gallops. PULMONARY: Chest is clear to auscultation, no wheezing or crackles. ABDOMEN: Soft, nontender, nondistended, normoactive bowel sounds. No palpable organomegaly. MUSCULOSKELETAL: No joint swelling or deformity. EXTREMITIES: No cyanosis, clubbing, or pedal edema. NEUROLOGICAL: Gross neurological examination did not reveal any focal deficits. SKIN: No rashes. Assessment and plan -Covid 19 pneumonia and acute hypoxia secondary to Covid 19 pneumonia patient will be continued on October, systemic steroids,, d-dimer is only 0.18, patient was started on Lovenox -Type 2 diabetes mellitus uncontrolled elevated blood sugars patient is expected to have highly elevated blood sugars because of Decadron will continue with the long-acting insulin and steroids scale -Gastroesophageal reflux disease -Hyperlipidemia -Morbid obesity DVT prophylaxis: Lovenox Objective - Vital Signs Vital signs: Vital Signs Temp 98.0 F 10/19/21 13:49 Pulse 82 10/19/21 13:49 Resp 19 10/19/21 13:49 BP 111/61 10/19/21 13:49 Pulse Ox 94 L 10/19/21 13:49 Intake & Output 10/18/21 10/19/21 10/19/21 18:59 06:59 18:59 Intake Total 450 800 Balance 450 800 Weight 149.685 kg 149.685 kg Intake: Intake, IV Titration 250 200 Amount Magnesium Sulfate-D5w Pmx 100 1 gm In Dextrose/Water 1 100ml.bag @ 100 mls/hr IVPB ONCE ONE Rx#: [id number] Magnesium Sulfate-D5w Pmx 100 1 gm In Dextrose/Water 1 100ml.bag @ 100 mls/hr IVPB Q1H [facility] Rx#: [id number] Remdesivir 200 mg In 250 Sodium Chloride 0.9% 250 ml @ 250 mls/hr IVPB ONCE ONE Rx#:[id number] Oral 200 600 Other: Voiding Method Toilet # Voids 3 - Labs CBC & Chem 7: 10/18/21 10:58 10/18/21 10:58 Labs: Abnormal Lab Results - Last 24 Hours (Table) 10/18/21 10/18/21 10/18/21 Range/Units 17:24 17:24 21:48 POC Glucose (mg/dL) 280 H (75-99) mg/dL C-Reactive Protein 4.9 H (<1.0) mg/dL Procalcitonin 0.15 H (0.02-0.09) ng/mL 10/19/21 10/19/21 Range/Units 07:47 11:18 POC Glucose (mg/dL) 225 H 197 H (75-99) mg/dL C-Reactive Protein (<1.0) mg/dL Procalcitonin (0.02-0.09) ng/mL
[2021-10-19 16:40] LABS: Glucose,Whole Blood 262 mg/dL (75-99)
[2021-10-19] MEDS: REMDESIVIR 100 MG in SODIUM CHLORIDE 0.9% 250 ML IVPB SCH (17:05)
[2021-10-19] MEDS: INSULIN ASPART (NovoLOG) 100 UNIT/ML VIAL SQ SCH ×2 (17:06→21:58)
--- NOTE | 2021-10-19 17:13 | XR ---
EXAMINATION TYPE: XR chest 1V DATE OF EXAM: 10/19/2021 CLINICAL HISTORY: sob. TECHNIQUE: Portable semiupright view of the chest. COMPARISON: 10/18/2021 FINDINGS: The cardiomediastinal silhouette is within normal limits for size. Mild to moderate patchy airspace opacities of the bilateral mid and basilar lungs, increased versus 10/18/2021. No pleural e ffusion. No pneumothorax seen. No acute displaced osseous fracture. IMPRESSION: [id number] patchy airspace opacities characteristic of Covid 19 pneumonia are mildly increased versus 10/18/2021.
[2021-10-19 21:10] LABS: Glucose,Whole Blood 211 mg/dL (75-99)
[2021-10-19] MEDS: ATORVASTATIN 20 MG TAB PO SCH (21:57)
[2021-10-19] MEDS: INSULIN DETEMIR (LEVEMIR) 100 UNIT/ML SYR SQ SCH (21:57)
[2021-10-20 07:03] LABS: Glucose,Whole Blood 164 mg/dL (75-99)
--- NOTE | 2021-10-20 08:36 | P.PN ---
Subjective Progress Note Date: 10/20/21 Principal diagnosis: The patient is a 56-year-old white male here for bilateral classical for Covid19 pneumonia. The patient is slowly improving. No voiding difficulties. Still oxygen dependent. Anosmia is noted Objective - Vital Signs Vital signs: Vital Signs Temp 97.6 F 10/20/21 05:56 Pulse 69 10/20/21 05:56 Resp 17 10/20/21 05:56 BP 123/63 10/20/21 05:56 Pulse Ox 95 10/20/21 05:56 Intake & Output 10/19/21 10/20/21 10/20/21 18:59 06:59 18:59 Other: Voiding Method Toilet # Voids 3 2 # Bowel Movements 1 1 - Constitutional General appearance: Present: morbidly obese - EENT Eyes: Absent: abnormal pupil - Neck Neck: Absent: lymphadenopathy - Respiratory Respiratory: bilateral: diminished - Cardiovascular Rhythm: regular Heart sounds: normal: S1, S2 Abnormal Heart Sounds: Absent: S3 Gallop - Gastrointestinal General gastrointestinal: Present: soft. Absent: tenderness - Labs CBC & Chem 7: 10/18/21 10:58 10/18/21 10:58 Labs: Abnormal Lab Results - Last 24 Hours (Table) 10/19/21 10/19/21 10/19/21 Range/Units 11:18 16:39 21:08 POC Glucose (mg/dL) 197 H 262 H 211 H (75-99) mg/dL 10/20/21 Range/Units 07:02 POC Glucose (mg/dL) 164 H (75-99) mg/dL Assessment and Plan (1) Hypoxia Current Visit: Yes Status: Acute Code(s): R09.02 - HYPOXEMIA SNOMED Code(s): 083737629 (2) Pneumonia due to COVID-19 virus Current Visit: Yes Status: Acute Code(s): U07.1 - COVID-19; J12.82 - PNEUMONIA DUE TO CORONAVIRUS DISEASE 2019 SNOMED Code(s): 957182431652599933 Plan: Continue current regimen of treatment. Check CBC and CMP in a.m. Anticipate discharge in next 24-48 hours
[2021-10-20] MEDS: INSULIN ASPART (NovoLOG) 100 UNIT/ML VIAL SQ SCH ×4 (08:48→20:53)
[2021-10-20] MEDS: CYCLOBENZAPRINE 10 MG TAB PO SCH ×3 (08:48→20:54)
[2021-10-20] MEDS: METOPROLOL SUCCINATE (ER) 50 MG TAB.ER.24H PO SCH (08:48)
[2021-10-20] MEDS: CITALOPRAM HYDROBROMIDE 20 MG TAB PO SCH (08:48)
[2021-10-20] MEDS: GABAPENTIN 300 MG CAP PO SCH ×3 (08:49→20:54)
[2021-10-20] MEDS: ENOXAPARIN 60 MG/0.6 ML SYRINGE SQ SCH (08:49)
[2021-10-20] MEDS: CHOLECALCIFEROL 25 MCG (1000 IU) TABLET PO SCH (08:49)
[2021-10-20] MEDS: FERROUS SULFATE 325 MG TAB PO SCH ×2 (08:49→20:54)
[2021-10-20] MEDS: dexAMETHasone 2 MG TAB PO SCH (08:49)
[2021-10-20] MEDS: ASCORBIC ACID 500 MG TAB PO SCH (08:50)
[2021-10-20] MEDS: ZINC SULFATE 220 MG CAP PO SCH (08:50)
[2021-10-20] MEDS: FAMOTIDINE 20 MG TAB PO SCH ×2 (08:50→20:54)
[2021-10-20] MEDS: MELOXICAM 7.5 MG TAB PO SCH ×2 (08:50→20:54)
[2021-10-20] MEDS: lisinopriL 5 MG TAB PO SCH (08:50)
[2021-10-20 11:53] LABS: Glucose,Whole Blood 243 mg/dL (75-99)
[2021-10-20 16:28] LABS: Glucose,Whole Blood 230 mg/dL (75-99)
[2021-10-20] MEDS: REMDESIVIR 100 MG in SODIUM CHLORIDE 0.9% 250 ML IVPB SCH (17:05)
--- NOTE | 2021-10-20 18:46 | P.PN ---
Subjective Progress Note Date: 10/20/21 Principal diagnosis: Acute hypoxic respiratory failure secondary COVID-19 pneumonia 10/19/2021, I'm seeing the patient for a follow-up. Is a 56-year-old male patient morbidly obese with severe obstructive sleep apnea. The patient currently is being treated in the hospital for COVID 19 related pneumonia. The patient is currently on 2 L about 2 by nasal cannula. Feeling well. No significant worsening shortness of breath. He was seen in consultation yesterday and the patient was started on Decadron 6 mg by mouth daily and is also started on Lovenox for DVT prophylaxis. He was also started on a nitroglycerin drip per protocol as the patient was felt to be falling within the window of this treatment. His pro-calcitonin level is at 0.15. D-dimer is at 0.18. His LDH level is 610. No other significant complaints for now. No nausea. No vomiting. No diarrhea. No abdominal pain. Reevaluated today on 10/20/2021, patient remains on the regular medical floor, on 1 L nasal cannula, does not seem to be in much of any distress. Patient remains on the COVID-19 cocktail. She is basically on Decadron 6 mg by mouth daily Lovenox subcu daily is also on insulin, remdesivir, she is on day 3 of this medication. I believe the patient is showing some improvement since admission. Objective - Vital Signs Vital signs: Vital Signs Temp 97.7 F 10/20/21 17:49 Pulse 88 10/20/21 17:49 Resp 16 10/20/21 17:49 BP 104/71 10/20/21 17:49 Pulse Ox 91 L 10/20/21 17:49 Intake & Output 10/19/21 10/20/21 10/20/21 18:59 06:59 18:59 Intake Total 472 Balance 472 Intake: Oral 472 Other: Voiding Method Toilet # Voids 3 2 1 # Bowel Movements 1 1 - Exam Physical Exam revealed a 66-year-old male in no distress. Head: Atraumatic, normocephalic. HEENT:[Neck is supple.] [No neck masses.] [No thyromegaly.] [No JVD.] Chest: [Minimal fine crackles at the bases. Cardiac Exam: [Normal S1 and S2, no S3 gallop, no murmur.] Abdomen: [Soft, nontender, no megaly, no rebound, no guarding, normal bowel sounds.] Extremities: [No clubbing, no edema, no cyanosis.] Neurological Exam: [No focal neurologic deficit.] - Labs CBC & Chem 7: 10/18/21 10:58 10/18/21 10:58 Labs: Abnormal Lab Results - Last 24 Hours (Table) 10/19/21 10/20/21 10/20/21 Range/Units 21:08 07:02 11:50 POC Glucose (mg/dL) 211 H 164 H 243 H (75-99) mg/dL 10/20/21 Range/Units 16:26 POC Glucose (mg/dL) 230 H (75-99) mg/dL Assessment and Plan Assessment: Impression: Acute hypoxic respiratory failure secondary COVID-19 pneumonia, negative workup for thromboembolic disease. Morbid obesity History of severe central sleep apnea Type 2 diabetes Benign essential hypertension Generalized anxiety disorder and depression Recommendation: Continue oxygen and titrate accordingly Continue hydration Continue ame, Manoj day #3. Continue Lovenox. Continue vitamin C D and zinc Use CPAP as needed and utilizes on CPAP from home. Will consider discharge planning in the next 48 hours Time with Patient: Less than 30
[2021-10-20 20:35] LABS: Glucose,Whole Blood 194 mg/dL (75-99)
[2021-10-20] MEDS: INSULIN DETEMIR (LEVEMIR) 100 UNIT/ML SYR SQ SCH (20:53)
[2021-10-20] MEDS: ATORVASTATIN 20 MG TAB PO SCH (20:54)
[2021-10-21 07:35] LABS: Glucose,Whole Blood 104 mg/dL (75-99)
[2021-10-21] MEDS: INSULIN ASPART (NovoLOG) 100 UNIT/ML VIAL SQ SCH ×2 (07:50→12:20)
--- NOTE | 2021-10-21 08:22 | P.DS ---
Providers Date of admission: 10/18/21 14:08 Attending physician: Tien Cottrell Consults: 10/18/21 14:08 Consult Physician Urgent Consulting Provider: Christy Dunlap Consult Reason/Comments: COVID pneumonia Do you want consulting provider notified?: Yes Primary care physician: Tien Cottrell - Discharge Diagnosis(es) (1) Hypoxia Current Visit: Yes Status: Acute (2) Pneumonia due to COVID-19 virus Current Visit: Yes Status: Acute Hospital Course: This discharge summary 56-year-old white male essentially admitted for bilateral coated pneumonia. The patient was stabilized with Hexadrol and appropriate Remdesivir. The patient remains slightly ashen dependent. Although I see do suspect that this is related to probable sleep apnea due to his orbit obesity. The patient has been cleared by pulmonology and will be sent home on at least one week of Hexadrol with zinc vitamin C and vitamin D. The patient is in fair condition and to follow-up with me in about a week. No voiding difficulties. Patient Condition at Discharge: Fair Plan - Discharge Summary Discharge Rx Participant: No New Discharge Prescriptions: New dexAMETHasone ORAL [Hexadrol] 6 mg PO DAILY #7 tab Ascorbic Acid [Vitamin C] 1,000 mg PO DAILY #30 tab Cholecalciferol [Vitamin D3 (25 Mcg = 1000 Iu)] 25 mcg PO DAILY #30 tablet Zinc Sulfate [Orazinc] 220 mg PO DAILY #30 cap Continue lisinopriL [Zestril] 5 mg PO DAILY Citalopram Hydrobromide [CeleXA] 20 mg PO DAILY Magnesium 250 mg PO DAILY Ferrous Sulfate [Feosol] 325 mg PO BID Cyclobenzaprine [Flexeril] 10 mg PO TID Aspirin EC [Ecotrin Low Dose] 81 mg PO DAILY Gabapentin [Neurontin] 300 mg PO TID Metoprolol Succinate (ER) [Toprol XL] 50 mg PO DAILY Insulin Glargine,Hum.rec.anlog [Brian Sage] 68 units SQ HS Exenatide Microspheres [Bydureon Bcise Auto-Injector] 2 mg SQ TU [place]-3 Fatty Acids/Fish Oil [Fish Oil 1,000 mg Softgel] 1 cap PO TID Meloxicam [Mobic] 7.5 mg PO BID Famotidine [Pepcid] 20 mg PO BID Atorvastatin Calcium [Lipitor] 20 mg PO HS Discharge Medication List Aspirin EC [Ecotrin Low Dose] 81 mg PO DAILY 10/18/21 [History] Atorvastatin Calcium [Lipitor] 20 mg PO HS 10/18/21 [History] Citalopram Hydrobromide [CeleXA] 20 mg PO DAILY 10/18/21 [History] Cyclobenzaprine [Flexeril] 10 mg PO TID 10/18/21 [History] Exenatide Microspheres [Bydureon Bcise Auto-Injector] 2 mg SQ TU 10/18/21 [History] Famotidine [Pepcid] 20 mg PO BID 10/18/21 [History] Ferrous Sulfate [Feosol] 325 mg PO BID 10/18/21 [History] Gabapentin [Neurontin] 300 mg PO TID 10/18/21 [History] Insulin Glargine,Hum.rec.anlog [Toujeo Solostar] 68 units SQ HS 10/18/21 [History] Magnesium 250 mg PO DAILY 10/18/21 [History] Meloxicam [Mobic] 7.5 mg PO BID 10/18/21 [History] Metoprolol Succinate (ER) [Toprol XL] 50 mg PO DAILY 10/18/21 [History] [place]-3 Fatty Acids/Fish Oil [Fish Oil 1,000 mg Softgel] 1 cap PO TID 10/18/21 [History] lisinopriL [Zestril] 5 mg PO DAILY 10/18/21 [History] Ascorbic Acid [Vitamin C] 1,000 mg PO DAILY #30 tab 10/21/21 [Rx] Cholecalciferol [Vitamin D3 (25 Mcg = 1000 Iu)] 25 mcg PO DAILY #30 tablet 10/21/21 [Rx] Zinc Sulfate [Orazinc] 220 mg PO DAILY #30 cap 10/21/21 [Rx] dexAMETHasone ORAL [Hexadrol] 6 mg PO DAILY #7 tab 10/21/21 [Rx] Follow up Appointment(s)/Referral(s): Tien Cottrell MD [Primary Care Provider] - 1-2 days
[2021-10-21] MEDS: ZINC SULFATE 220 MG CAP PO SCH (08:25)
[2021-10-21] MEDS: ENOXAPARIN 60 MG/0.6 ML SYRINGE SQ SCH (08:25)
[2021-10-21] MEDS: METOPROLOL SUCCINATE (ER) 50 MG TAB.ER.24H PO SCH (08:25)
[2021-10-21] MEDS: FERROUS SULFATE 325 MG TAB PO SCH (08:26)
[2021-10-21] MEDS: dexAMETHasone 2 MG TAB PO SCH (08:26)
[2021-10-21] MEDS: CHOLECALCIFEROL 25 MCG (1000 IU) TABLET PO SCH (08:26)
[2021-10-21] MEDS: ASCORBIC ACID 500 MG TAB PO SCH (08:26)
[2021-10-21] MEDS: CITALOPRAM HYDROBROMIDE 20 MG TAB PO SCH (08:26)
[2021-10-21] MEDS: lisinopriL 5 MG TAB PO SCH (08:26)
[2021-10-21] MEDS: GABAPENTIN 300 MG CAP PO SCH (08:26)
[2021-10-21] MEDS: FAMOTIDINE 20 MG TAB PO SCH (08:26)
[2021-10-21] MEDS: CYCLOBENZAPRINE 10 MG TAB PO SCH (08:26)
[2021-10-21] MEDS: MELOXICAM 7.5 MG TAB PO SCH (08:27)
--- NOTE | 2021-10-21 08:35 | P.PN ---
Subjective Progress Note Date: 10/21/21 On 10/21/2021 patient seen in follow-up on medical surgical floor, he is resting comfortably in bed, currently down to 1 L of oxygen, pulse ox is 88-90%, patient did qualify for home oxygen, home on 122 L of supplemental oxygen, his been afebrile, no signs have been stable, no worsening dyspnea, no cough, no nausea vomiting diarrhea, tolerating oral intake, no specific complaints, a is day 4 of this Remdesivir treatment however in view of his clinical stability and clinical improvement, we will cut his treatment short, he doesn't need to stay and received his last dose tomorrow. His last chest x-ray showed mild to moderate patchy airspace opacities characteristic of COVID-19 pneumonia. Clinical exam reveals some mild crackles in bilateral bases. No new labs today, his inflammatory markers were not significantly elevated on admission. He is on Decadron, prophylactic Lovenox and COVID-19 vitamins. Objective - Vital Signs Vital signs: Vital Signs Temp 98.3 F 10/21/21 06:17 Pulse 92 10/21/21 06:17 Resp 19 10/21/21 06:17 BP 113/66 10/21/21 06:17 Pulse Ox 88 L 10/21/21 06:20 Intake & Output 10/20/21 10/21/21 10/21/21 18:59 06:59 18:59 Intake Total 472 Balance 472 Intake: Oral 472 Other: Voiding Method Toilet # Voids 1 2 # Bowel Movements 1 - Exam GENERAL EXAM: Alert, very pleasant, morbidly obese 56-year-old white male, on 1 L of oxygen a pulse ox of 88-90%,, comfortable in no apparent distress. HEAD: Normocephalic/atraumatic. EYES: Normal reaction of pupils, equal size. Conjunctiva pink, sclera white. NOSE: Clear with pink turbinates. THROAT: No erythema or exudates. NECK: No masses, no JVD, no thyroid enlargement, no adenopathy. CHEST: No chest wall deformity. Symmetrical expansion. LUNGS: Equal air entry with basilar crackles CVS: Regular rate and rhythm, normal S1 and S2, no gallops, no murmurs, no rubs ABDOMEN: Soft, nontender. No hepatosplenomegaly, normal bowel sounds, no guarding or rigidity. EXTREMITIES: No clubbing, no edema, no cyanosis, 2+ pulses and upper and lower extremities. MUSCULOSKELETAL: Muscle strength and tone normal. SPINE: No scoliosis or deformity SKIN: No rashes CENTRAL NERVOUS SYSTEM: Alert and oriented -3. No focal deficits, tone is normal in all 4 extremities. PSYCHIATRIC: Alert and oriented -3. Appropriate affect. Intact judgment and insight. - Labs CBC & Chem 7: 10/18/21 10:58 10/18/21 10:58 Labs: Abnormal Lab Results - Last 24 Hours (Table) 10/20/21 10/20/21 10/20/21 Range/Units 11:50 16:26 20:33 POC Glucose (mg/dL) 243 H 230 H 194 H (75-99) mg/dL 10/21/21 Range/Units 07:32 POC Glucose (mg/dL) 104 H (75-99) mg/dL Assessment and Plan Plan: Assessment: #1. Acute COVID 19 related pneumonia. The patient presented with few days' history of cough and dyspnea addition to loss and taste and smell and the patient was found to be hypoxemic and a CT angiogram showed patchy bilateral groundglass pulmonary infiltrates consistent with COVID 19 related pneumonia. According to the patient was hospitalized. The patient's condition is stable. Currently the patient is being treated with a combination of Decadron and Remdesivir protocol. D-dimer is low. Inflammatory markers are essentially low at this point in time. Oxygen requirements are only 2 L per minute nasal cannula. #2. Acute hypoxic respiratory failure secondary to above currently on 2 L of oxygen by nasal cannula #3. Loss and taste and smell secondary to above #4. Morbid obesity with BMI of 60.4 #5. Severe central sleep apnea with an AHI of 90, at a pressure of 16 cm of water of CPAP. #6. Diabetes mellitus #7. Hypertension #8. Hyperlipidemia #9. Chronic anxiety/depression plan: Patient has been maintaining stable oxygenation on minimal supplemental oxygen, is currently on 1 L of oxygen No acute events overnight, no worsening dyspnea, Vitals stable, no fever or chills On day 4 of the Remdesivir treatment, however clinically stable Clear for discharge from pulmonary perspective Patient can finish outpatient course of oral Decadron for a total of 10 days Follow up with Dr. Dunlap in the office in 2 weeks I performed a history & physical examination of the patient and discussed their management with my nurse practitioner, Huong Miranda. I reviewed the nurse practitioner's note and agree with the documented findings and plan of care. Lung sounds are positive for basilar crackles throughout the lung noble. The findings and the impression was discussed with the patient. I attest to the documentation by the nurse practitioner. Time with Patient: Less than 30
[2021-10-21 09:41] LABS: HCT 46.5 % (39.6-50.0); HGB 13.7 g/dL (13.0-17.0); MCHC 29.5 g/dL (32.0-37.0); MCV 88.2 fL (80.0-97.0); Mean Platelet Volume 9.9 fL (9.5-12.2); Platelet Count 330 X 10*3/uL (140-440); RBC 5.27 X 10*6/uL (4.40-5.60); RDW 14.2 % (11.5-14.5); WBC 8.41 X 10*3/uL (4.50-10.00)
[2021-10-21 10:24] LABS: African American GFR (CKD) 114.1 (60.0-200.0); Albumin 3.3 g/dL (3.8-4.9); Albumin/Globulin Ratio 1.18 (1.60-3.17); Anion Gap 9.9 mmol/L (10.00-18.00); BUN/Creat Ratio 19.13 Ratio (12.00-20.00); Blood Urea Nitrogen 15.3 mg/dL (9.0-27.0); Calcium 8.6 mg/dL (8.7-10.3); Carbon Dioxide 29.1 mmol/L (20.0-27.5); Globulin 2.8 g/dL (1.6-3.3); Non-African American GFR(CKD) 98.5 (60.0-200.0); Potassium 4.5 mmol/L (3.5-5.5); Total Bilirubin 0.4 mg/dL (0.30-1.20); Total Protein 6.1 g/dL (6.2-8.2)
[2021-10-21 12:15] LABS: Glucose,Whole Blood 188 mg/dL (75-99)
[2021-10-21 14:39] VITALS: BP 132/57; PULSE 87; RESP 17; TEMP 98.6
== END 2021-10-21 15:26 | disposition home or self-care (01) | DRG 177 ==
LOC: EC 09:20 → 4SSUR 14:08
PROVIDERS: ADMIT Family Medicine; ATTEND Family Medicine
PROC: XW033E5 Introduction of Remdesivir Anti-infective into Peripheral Vein, Percutaneous Approach, New Technology Group 5 (ICD-10-PCS; principal; 2021-10-18)
DX: U07.1 COVID-19 (principal); J12.82 Pneumonia due to coronavirus disease 2019; J96.01 Acute respiratory failure with hypoxia; Z68.44 Body mass index [BMI] 60.0-69.9, adult; E11.65 Type 2 diabetes mellitus with hyperglycemia; Z79.4 Long term (current) use of insulin; E66.01 Morbid (severe) obesity due to excess calories; T38.0X5A Adverse effect of glucocorticoids and synthetic analogues, initial encounter; E78.5 Hyperlipidemia, unspecified; G47.33 Obstructive sleep apnea (adult) (pediatric); I10 Essential (primary) hypertension; K21.9 Gastro-esophageal reflux disease without esophagitis; I49.3 Ventricular premature depolarization; G47.31 Primary central sleep apnea; F32.A Depression, unspecified; F41.1 Generalized anxiety disorder; Z79.82 Long term (current) use of aspirin; Z79.1 Long term (current) use of non-steroidal anti-inflammatories (NSAID); Z79.899 Other long term (current) drug therapy
CPT/HCPCS: 36415; 71045; 71275; 80053; 83615; 83735; 84145; 84484; 85025; 85027; 85379; 86140; 87635; 93005; 96374; 99285

== ENCOUNTER → 2023-04-19 | Outpatient (CLI) | payer BC ==
[~2023-04-19] MED LIST: REGADENOSON 0.4 MG/5 ML SYRINGE IV PRN
--- NOTE | 2023-04-19 11:39 | NM ---
EXAMINATION TYPE: NM stress lexiscan cardiolite DATE OF EXAM: 04/19/2023 COMPARISON: NONE CLINICAL INDICATION: Male, 57 years old with history of R0789; TECHNIQUE: After the intravenous administration of 10.1 mCi Tc 99m Sestamibi - Cardiolite resting SP ECT images acquired 45 minutes post injection. The patient received 0.4mg Lexiscan, 25.5 mCi Tc 99m Sestamibi - Stress images obtained [address] injection FINDINGS: Review of stress and rest SPECT images demonstrates no distinct perfusion abnormality. Gated analysi s shows normal wall motion with an estimated left ventricular ejection fraction of 63 %. IMPRESSION: No scintigraphic evidence for reversible ischemia.
--- NOTE | 2023-04-19 12:46 | CA ---
Lexiscan Nuclear Stress Test Report Name: Abiodun Kelly Exam Date: 04/19/2023 10:15 Exam Location: [facility] Ht (in): 62 Wt (lb): 330 BSA: 2.36 Ordering Phys: Harsh Shelton MD Referring Phys: JOHN,, Technologist: ASHWINI,, Age: 57 Gender: M : 1965 Procedure CPT: Indications: R0789; R91.1 ICD-10 Codes: Patient History: Chest Pain Medications: Meds past 24 hrs: Pretest Chest Pain: STRESS TEST Lexiscan Protocol Exercise Duration (min:sec): 02:[address] Depressions (mm): Angina Score: Hawk Score: Resting HR (bpm): 62 Peak HR (bpm): 91 Resting BP (mmHg): 132 / 78 Peak BP (mmHg): 133 / 73 MPHR: 161 Target HR: 137 % MPHR: 57 METS: 1.0 Total Dose: Peak Dose: Atropine: Double Product: 39457 BP Response: Stress Termination: Infusion complete Stress Symptoms: No chest pain or symptoms Stress Summary: ECG ANALYSIS Resting ECG: Stress ECG: CONCLUSIONS Nondiagnostic the stress testing Dr. Harsh Shelton MD (Electronically Signed) Final Date: 19 April 2023 12:45
== END | disposition home or self-care (01) ==
LOC: RADNMMAIN 07:58
PROVIDERS: ATTEND Internal Medicine Interventional Cardiology
DX: R07.89 Other chest pain (principal)
CPT/HCPCS: 93017; 78452; A9500; J2785